=== PATIENT | male | born 1955 | race Caucasian/White ===

== ENCOUNTER 2021-03-17 19:57 | Inpatient (IN) | payer MEDICAID ==
[2021-03-17] MEDS ORDERED: Sodium Chloride 0.9% 10 ML Syringe FLUSH PRN (20:19)
[2021-03-17 21:12] LABS: ANION GAP 12.2 mmol/L (5-15); CHLORIDE,CL 103 mmol/L (98-107); SODIUM,NA 141 mmol/L (136-145)
[2021-03-17] MEDS ORDERED: Cefepime 2 GM in Sodium Chloride 0.9% 100 ML IV SCH (22:00)
[2021-03-18] MEDS ORDERED: Loratadine 10 MG Tab PO PRN (00:07)
[2021-03-18] MEDS ORDERED: Menthol/Methyl Salicylate 85 GM Tube TOP PRN (00:07)
[2021-03-18] MEDS ORDERED: Albuterol 0.083% 2.5 MG/3 ML Neb Soln INH PRN (00:07)
[2021-03-18] MEDS ORDERED: Albuterol/Ipratropium 3.0-0.5 MG/3 ML Neb Soln NEB PRN (00:07)
[2021-03-18] MEDS: Lactated Ringers 1,000 ML IV SCH ×2 (01:59→18:45)
[2021-03-18] MEDS: Acetaminophen 325 MG Tab PO PRN (03:14)
[2021-03-18] MEDS: Omeprazole 20 MG Cap.CR PO SCH (06:29)
[2021-03-18] MEDS: Formoterol/Mometasone 200-5 MCG 8.8 GM Inhaler IH SCH ×2 (06:29→20:53)
[2021-03-18] MEDS ORDERED: QUETIAPINE FUMARATE 150 MG PO SCH (08:00)
[2021-03-18] MEDS: Cefepime 2 GM in Sodium Chloride 0.9% 100 ML IV SCH ×2 (08:53→19:42)
[2021-03-18] MEDS: Carvedilol 6.25 MG Tab PO SCH ×2 (08:59→20:45)
[2021-03-18] MEDS: Venlafaxine 75 MG Cap.ER PO SCH (08:59)
[2021-03-18] MEDS: Tamsulosin 0.4 MG Cap.ER PO SCH (09:00)
[2021-03-18] MEDS: Citalopram 20 MG Tab PO SCH (09:00)
[2021-03-18] MEDS: QUEtiapine 25 MG Tab PO SCH ×2 (09:00→19:43)
[2021-03-18] MEDS: Gabapentin 300 MG Cap PO SCH ×3 (09:00→19:42)
[2021-03-18] MEDS: Lactobacillus Rhamnosus GG (Probiotic) Cap PO SCH (09:01)
[2021-03-18] MEDS: Zinc Sulfate 220 MG Cap PO SCH (09:01)
[2021-03-18] MEDS: Apixaban 2.5 MG Tab PO SCH ×2 (09:01→19:42)
[2021-03-18 09:32] LABS: CHLORIDE,CL 106 mmol/L (98-107); SODIUM,NA 141 mmol/L (136-145)
[2021-03-18 09:33] LABS: ANION GAP 14.1 mmol/L (5-15)
[2021-03-18] MEDS: traZODone 50 MG Tab PO SCH (19:43)
[2021-03-19] MEDS: Omeprazole 20 MG Cap.CR PO SCH (06:20)
[2021-03-19] MEDS: Formoterol/Mometasone 200-5 MCG 8.8 GM Inhaler IH SCH ×2 (06:24→20:05)
[2021-03-19 07:24] LABS: CHLORIDE,CL 110 mmol/L (98-107); SODIUM,NA 143 mmol/L (136-145)
[2021-03-19 07:46] LABS: ANION GAP 11.8 mmol/L (5-15)
[2021-03-19] MEDS: Cefepime 2 GM in Sodium Chloride 0.9% 100 ML IV SCH ×2 (09:12→19:32)
[2021-03-19] MEDS: Zinc Sulfate 220 MG Cap PO SCH (09:13)
[2021-03-19] MEDS: Lactobacillus Rhamnosus GG (Probiotic) Cap PO SCH (09:13)
[2021-03-19] MEDS: Venlafaxine 75 MG Cap.ER PO SCH (09:13)
[2021-03-19] MEDS: Tamsulosin 0.4 MG Cap.ER PO SCH (09:14)
[2021-03-19] MEDS: Citalopram 20 MG Tab PO SCH (09:16)
[2021-03-19] MEDS: QUEtiapine 25 MG Tab PO SCH ×2 (09:16→19:40)
[2021-03-19] MEDS: Carvedilol 6.25 MG Tab PO SCH ×2 (09:17→19:40)
[2021-03-19] MEDS: Apixaban 2.5 MG Tab PO SCH ×2 (09:17→19:40)
[2021-03-19] MEDS: Gabapentin 300 MG Cap PO SCH ×3 (09:17→19:39)
[2021-03-19] MEDS ORDERED: Vancomycin 750 MG SDV ONE (13:25)
[2021-03-19] MEDS: Lactated Ringers 1,000 ML IV SCH (19:28)
[2021-03-19] MEDS: traZODone 50 MG Tab PO SCH (19:40)
[2021-03-19] MEDS: Acetaminophen 325 MG Tab PO PRN (19:41)
[2021-03-20] MEDS: Omeprazole 20 MG Cap.CR PO SCH (06:22)
[2021-03-20 07:11] LABS: CHLORIDE,CL 110 mmol/L (98-107); SODIUM,NA 145 mmol/L (136-145)
[2021-03-20 07:12] LABS: ANION GAP 12.6 mmol/L (5-15)
[2021-03-20] MEDS: Cefepime 2 GM in Sodium Chloride 0.9% 100 ML IV SCH (07:45)
[2021-03-20] MEDS: Venlafaxine 75 MG Cap.ER PO SCH (07:49)
[2021-03-20] MEDS: Lactobacillus Rhamnosus GG (Probiotic) Cap PO SCH (07:50)
[2021-03-20] MEDS: Zinc Sulfate 220 MG Cap PO SCH (07:50)
[2021-03-20] MEDS: Gabapentin 300 MG Cap PO SCH ×2 (07:50→11:35)
[2021-03-20] MEDS: Citalopram 20 MG Tab PO SCH (07:50)
[2021-03-20] MEDS: Apixaban 2.5 MG Tab PO SCH (07:51)
[2021-03-20] MEDS: QUEtiapine 25 MG Tab PO SCH (07:51)
[2021-03-20] MEDS: Carvedilol 6.25 MG Tab PO SCH (07:51)
[2021-03-20] MEDS: Tamsulosin 0.4 MG Cap.ER PO SCH (07:51)
[2021-03-20] MEDS: Formoterol/Mometasone 200-5 MCG 8.8 GM Inhaler IH SCH (07:52)
== END 2021-03-20 13:20 | DRG 863 ==
LOC: VM.ED 19:57 → VM.MS 21:16
PROVIDERS: ADMIT Nurse Practitioner Family; ATTEND Nurse Practitioner Family
DX: T81.41XA Infection following a procedure, superficial incisional surgical site, initial encounter (principal); L03.313 Cellulitis of chest wall; E44.0 Moderate protein-calorie malnutrition; Z88.8 Allergy status to other drugs, medicaments and biological substances; Z79.01 Long term (current) use of anticoagulants; G62.1 Alcoholic polyneuropathy; L89.90 Pressure ulcer of unspecified site, unspecified stage; Z20.822 Contact with and (suspected) exposure to COVID-19; F41.1 Generalized anxiety disorder; N40.1 Benign prostatic hyperplasia with lower urinary tract symptoms; J44.9 Chronic obstructive pulmonary disease, unspecified; M19.90 Unspecified osteoarthritis, unspecified site; I10 Essential (primary) hypertension; D50.9 Iron deficiency anemia, unspecified; N48.6 Induration penis plastica; G40.909 Epilepsy, unspecified, not intractable, without status epilepticus; Z95.810 Presence of automatic (implantable) cardiac defibrillator; Z98.1 Arthrodesis status; Z98.890 Other specified postprocedural states; Z96.643 Presence of artificial hip joint, bilateral; Z87.891 Personal history of nicotine dependence; Z79.899 Other long term (current) drug therapy; F10.20 Alcohol dependence, uncomplicated; R25.1 Tremor, unspecified
CPT/HCPCS: 36415; 71045; 80053; 80202; 81003; 82140; 83605; 83735; 84100; 84145; 85025; 85610; 86140; 87040; 99283; 99285-25; A9270-GY; J0692; J3370; J7050; J7120; U0002

== ENCOUNTER 2021-04-02 15:07 | Inpatient (IN) | payer MEDICAID ==
[2021-04-02] MEDS ORDERED: Ondansetron 4 MG/2 ML SDV IVPUSH ONE (15:26)
[2021-04-02] MEDS ORDERED: Morphine 4 MG/ML Syringe IVPUSH ONE ×2 (15:27→22:29)
--- NOTE | 2021-04-02 15:40 | EDM.PDOC ---
ED HPI GENERAL MEDICAL PROBLEM - General Chief Complaint: Abdominal Pain Time Seen by Provider: 04/02/21 15:10 Source of Information: Reports: Patient, Family, Old Records History Limitations: Reports: No Limitations - History of Present Illness INITIAL COMMENTS - FREE TEXT/NARRATIVE: Pt. presents to ER with complaints of abdominal discomfort and distention that has been present for several days. Pt. states that he has been taking "Ex Lax" because he thinks he is constipated. 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 Pt. was sent to the ER for "CT scan". He had some plain film x-rays that were interpreted as showing dilated bowel loops. Pt. is not actively vomiting. He states that he had a BM before going to clinic today and states that it was runny. He does not think he has had any fever or chills. No chest pain. He was [facility] O2 yesterday at the [facility] due to hypoxia. O2 sats were in the 80s apparently. He denies any worsening shortness of breath today. Pt. denies any melena, hematochezia, or hematemesis. Covid test today was negative. He denies any cough or chest congestion. No sore throat or rhinorrhea. Onset: Today Onset Date: 04/02/21 Location: Reports: Abdomen, Generalized - Related Data Allergies Allergy/AdvReac Type Severity Reaction Status Date / Time aripiprazole [From Abilify] Allergy Other Verified 04/02/21 15:27 Home Meds: Home Meds Acetaminophen [Tylenol] 2 tbs PO Q8HR PRN 03/17/21 [History] Albuterol [Take Home: Albuterol 18 GM, 1 INH Pack] 2 puff INH Q6HR PRN 03/17/21 [History] Albuterol/Ipratropium [DuoNeb 3.0-0.5 MG/3 ML] 3 ml NEB BID PRN 03/17/21 [History] Apixaban [Eliquis] 5 mg PO BID 03/17/21 [History] Cetirizine [ZyrTEC] 10 mg PO ONETIME PRN 03/17/21 [History] Escitalopram Oxalate [Lexapro] 10 mg PO DAILY 03/17/21 [History] Fluticasone Propion/Salmeterol [Advair 250-50 Diskus] 1 puff INH Q12HR 03/17/21 [History] Gabapentin [Neurontin] 300 mg PO TID 03/17/21 [History] Menthol [Biofreeze] 118 ml TP BEDTIME PRN 03/17/21 [History] Omeprazole 20 mg PO DAILY 03/17/21 [History] QUEtiapine Fumarate [Seroquel Xr] 150 mg PO DAILY 03/17/21 [History] Tamsulosin [Flomax] 1 cap PO DAILY 03/17/21 [History] Venlafaxine [Effexor XR] 225 mg PO DAILY 03/17/21 [History] Zinc Sulfate [Zincate] 220 mg PO DAILY 03/17/21 [History] carvediloL [Carvedilol] 6.25 mg PO BID 03/17/21 [History] traZODone HCl [Trazodone HCl] 100 mg PO BEDTIME 03/17/21 [History] Nicotine [Nicotine Patch] 21 mg TD DAILY 04/02/21 [History] bisacodyL [Bisacodyl] 5 mg PO ASDIRECTED PRN 04/02/21 [History] oxyCODONE 10 mg PO Q6H PRN 04/02/21 [History] Past Medical History Cardiovascular History: Reports: Pacemaker Dermatologic History: Reports: Decubitus Ulcer Other Dermatologic History: Wound to right gutierres and left upper flank - Past Surgical History Head Surgeries/Procedures: Reports: None HEENT Surgical History: Reports: None Cardiovascular Surgical History: Reports: Pacer Dermatological Surgical History: Reports: None Social & Family History - Tobacco Use Tobacco Use Status *Q: Unknown Ever Used Tobacco - Caffeine Use Caffeine Use: Reports: Coffee ED ROS GENERAL - Review of Systems Review Of Systems: See Below Constitutional: Denies: Fever, Chills, Malaise, Weakness, Fatigue HEENT: Reports: No Symptoms Respiratory: Reports: No Symptoms Cardiovascular: Reports: No Symptoms Endocrine: Reports: No Symptoms GI/Abdominal: Reports: Abdominal Pain, Decreased Appetite, Distension, Nausea, Vomiting. Denies: Black Stool, Hematemesis, Hematochezia, Melena : Reports: No Symptoms Musculoskeletal: Reports: No Symptoms Skin: Reports: No Symptoms Neurological: Reports: No Symptoms Psychiatric: Reports: No Symptoms Hematologic/Lymphatic: Reports: No Symptoms Immunologic: Reports: No Symptoms ED EXAM, GENERAL - Physical Exam Exam: See Below Exam Limited By: No Limitations General Appearance: Alert, WD/WN, No Apparent Distress Head: Atraumatic, Normocephalic Respiratory/Chest: No Respiratory Distress, No Accessory Muscle Use, Chest Non- Tender, Decreased Breath Sounds Cardiovascular: Normal Peripheral Pulses, Regular Rate, Rhythm, No Edema, No JVD, No Murmur Peripheral Pulses: 4+: Radial (L) GI/Abdominal: Soft, Non-Tender, No Distention, No Mass (Male) Exam: Deferred Rectal (Males) Exam: Deferred Back Exam: Normal Inspection, Full Range of Motion Extremities: Normal Inspection, Normal Range of Motion, Non-Tender, No Pedal Edema, Normal Capillary Refill Neurological: Alert, Oriented, CN II-XII Intact, Normal Cognition Psychiatric: Normal Affect, Normal Mood Skin Exam: Warm, Dry, Intact, Normal Color, No Rash Course - Vital Signs Last Recorded V/S: Last Vital Signs Temp 36.6 C 04/02/21 15:10 Pulse 99 04/02/21 16:43 Resp 16 04/02/21 15:10 BP 111/53 L 04/02/21 16:43 Pulse Ox 96 04/02/21 15:10 - Orders/Labs/Meds Orders: Active Orders 24 hr Category Date Time Status Patient Status [ADT] Routine ADT 04/03/21 00:28 Active Gastrointestinal Tube Mgmt [RC] ASDIRECTED Care 04/03/21 00:19 Active Abdomen 1V Upright [CR] Stat Exams 04/03/21 00:19 Stop Req Abdomen Pelvis w Cont [CT] Stat Exams 04/02/21 15:42 Ordered Chest 1V Frontal [CR] Stat Exams 04/03/21 00:19 Ordered Sodium Chloride 0.9% [Saline Flush] Med 04/02/21 15:23 Active 10 ml FLUSH ASDIRECTED PRN NG [Nasogastric Orogastric Tube Insertion] [OM.PC] Oth 04/03/21 00:19 Ordered Routine Peripheral IV Insertion Adult [OM.PC] Routine Oth 04/02/21 15:24 Ordered Medication Orders Sodium Chloride (Sodium Chloride 0.9% 10 Ml Syringe) 10 ml FLUSH ASDIRECTED PRN PRN Reason: Keep Vein Open Labs: Laboratory Tests 04/02/21 04/02/21 04/02/21 Range/Units 16:10 16:10 16:10 WBC 10.0 (4.0-10.0) x10^3/uL RBC 4.12 L (4.5-6.0) x10^6/uL Hgb 12.3 L (14.0-18.0) g/dL Hct 37.4 L (40.0-52.0) % MCV 90.8 (78.0-93.0) fL MCH 29.9 (26.0-32.0) pg MCHC 32.9 (32.0-36.0) g/dL RDW Coeff of Ender 14.4 (10.0-15.0) % Plt Count 329 (130-400) x10^3/uL Immature Gran % (Auto) 0.10 (0.00-0.43) % Neut % (Auto) 74.5 (50.0-80.0) % Lymph % (Auto) 12.3 L (25.0-50.0) % [place] % (Auto) 10.3 (2.0-11.0) % Eos % (Auto) 2.0 (0.0-4.0) % Baso % (Auto) 0.8 (0.2-1.2) % Neut # (Auto) 7.5 (1.8-7.7) x10^3/uL Lymph # (Auto) 1.2 (1.0-4.8) x10^3/uL [place] # (Auto) 1.0 H (0.0-0.8) x10^3/uL Eos # (Auto) 0.2 (0.0-0.5) x10^3/uL Baso # (Auto) 0.1 (0.0-0.2) x10^3/uL Immature Gran # (Auto) 0.01 (0.00-0.07) x10^3/uL PT 10.3 (9.9-12.5) SEC INR 0.9 L (2.0-3.5) APTT (25.6-32.8) SEC Sodium TNP Potassium TNP Chloride TNP Carbon Dioxide 22 (21-32) mmol/L Anion Gap TNP BUN 10 (7-18) mg/dL Creatinine 1.2 (0.70-1.30) mg/dL Est Cr Clr Drug Dosing TNP Estimated GFR (MDRD) > 60 Glucose 110 H (70-99) mg/dL Calcium 9.2 (8.5-10.1) mg/dL Corrected Calcium 10.0 (8.5-10.1) mg/dL Phosphorus 4.3 (2.6-4.7) mg/dL Magnesium 1.8 (1.8-2.4) mg/dL Total Bilirubin 0.3 (0.2-1.0) mg/dL AST 16 (15-37) U/L ALT 11 L (16-63) U/L Alkaline Phosphatase 114 (46-116) U/L C-Reactive Protein 10.6 H (<=0.9) mg/dL Total Protein 8.2 (6.4-8.2) g/dL Albumin 3.0 L (3.4-5.0) g/dL Globulin 5.2 g/dL Albumin/Globulin Ratio 0.58 Amylase 26 (25-115) U/L Lipase 43 L (73-393) U/L Urine Color (YELLOW) Urine Appearance (CLEAR) Urine pH (5.0-8.0) Ur Specific [place] Urine Protein (NEGATIVE) mg/dL Urine Glucose (UA) (NEGATIVE) mg/dL Urine Ketones (NEGATIVE) mg/dL Urine Occult Blood (NEGATIVE) Urine Nitrite (NEGATIVE) Urine Bilirubin (NEGATIVE) Urine Urobilinogen (0.2) EU/dL Ur Leukocyte Esterase (NEGATIVE) 04/02/21 04/02/21 04/02/21 Range/Units 16:10 17:34 23:35 WBC (4.0-10.0) x10^3/uL RBC (4.5-6.0) x10^6/uL Hgb (14.0-18.0) g/dL Hct (40.0-52.0) % MCV (78.0-93.0) fL MCH (26.0-32.0) pg MCHC (32.0-36.0) g/dL RDW Coeff of Ender (10.0-15.0) % Plt Count (130-400) x10^3/uL Immature Gran % (Auto) (0.00-0.43) % Neut % (Auto) (50.0-80.0) % Lymph % (Auto) (25.0-50.0) % [place] % (Auto) (2.0-11.0) % Eos % (Auto) (0.0-4.0) % Baso % (Auto) (0.2-1.2) % Neut # (Auto) (1.8-7.7) x10^3/uL Lymph # (Auto) (1.0-4.8) x10^3/uL [place] # (Auto) (0.0-0.8) x10^3/uL Eos # (Auto) (0.0-0.5) x10^3/uL Baso # (Auto) (0.0-0.2) x10^3/uL Immature Gran # (Auto) (0.00-0.07) x10^3/uL PT (9.9-12.5) SEC INR (2.0-3.5) APTT 29.1 (25.6-32.8) SEC Sodium 137 Potassium 3.4 L Chloride 102 Carbon Dioxide 26 (21-32) mmol/L Anion Gap 12.4 BUN (7-18) mg/dL Creatinine (0.70-1.30) mg/dL Est Cr Clr Drug Dosing Estimated GFR (MDRD) Glucose (70-99) mg/dL Calcium (8.5-10.1) mg/dL Corrected Calcium (8.5-10.1) mg/dL Phosphorus (2.6-4.7) mg/dL Magnesium (1.8-2.4) mg/dL Total Bilirubin (0.2-1.0) mg/dL AST (15-37) U/L ALT (16-63) U/L Alkaline Phosphatase (46-116) U/L C-Reactive Protein (<=0.9) mg/dL Total Protein (6.4-8.2) g/dL Albumin (3.4-5.0) g/dL Globulin g/dL Albumin/Globulin Ratio Amylase (25-115) U/L Lipase (73-393) U/L Urine Color Dark yellow H (YELLOW) Urine Appearance Clear (CLEAR) Urine pH 6.0 (5.0-8.0) Ur Specific [place] 1.010 Urine Protein Negative (NEGATIVE) mg/dL Urine Glucose (UA) Negative (NEGATIVE) mg/dL Urine Ketones Negative (NEGATIVE) mg/dL Urine Occult Blood Negative (NEGATIVE) Urine Nitrite Negative (NEGATIVE) Urine Bilirubin Negative (NEGATIVE) Urine Urobilinogen 0.2 (0.2) EU/dL Ur Leukocyte Esterase Negative (NEGATIVE) Meds: Medications Generic Name Dose Route Start Last Admin Trade Name Qasimq PRN Reason Stop Dose Admin Sodium Chloride 10 ml 04/02/21 15:23 Sodium Chloride 0.9% 10 Ml Syringe FLUSH ASDIRECTED PRN Keep Vein Open Discontinued Medications Generic Name Dose Route Start Last Admin Trade Name Simeon PRN Reason Stop Dose Admin Morphine Sulfate 4 mg 04/02/21 15:27 04/02/21 16:18 Morphine 4 Mg/Ml Syringe IVPUSH 04/02/21 15:28 4 mg ONETIME ONE Administration Morphine Sulfate 4 mg 04/02/21 22:29 04/02/21 22:40 Morphine 4 Mg/Ml Syringe IVPUSH 04/02/21 22:30 4 mg ONETIME ONE Administration Ondansetron HCl 4 mg 04/02/21 15:26 04/02/21 16:16 Ondansetron 4 Mg/2 Ml Sdv IVPUSH 04/02/21 15:27 4 mg ONETIME ONE Administration Departure - Departure Time of Disposition: 12:53 Disposition: Admitted As Inpatient 67 Clinical Impression: Bowel obstruction - Discharge Information Referrals: Sherrell Florez DO [Primary Care Provider] - Forms: ED Department Discharge Sepsis Event Note (ED) - Focused Exam Vital Signs: Vital Signs Temp Pulse Resp BP Pulse Ox 04/02/21 16:43 99 111/53 L 04/02/21 15:10 36.6 C 121 H 16 100/55 L 96 - Problem List Review Problem List Initiated/Reviewed/Updated: Yes - My Orders Last 24 Hours: My Active Orders 04/02/21 15:23 Sodium Chloride 0.9% [Saline Flush] 10 ml FLUSH ASDIRECTED PRN 04/02/21 15:24 Peripheral IV Insertion Adult [OM.PC] Routine 04/02/21 15:42 Abdomen Pelvis w Cont [CT] Stat 04/03/21 00:19 Gastrointestinal Tube Mgmt [RC] ASDIRECTED Abdomen 1V Upright [CR] Stat Chest 1V Frontal [CR] Stat NG [Nasogastric Orogastric Tube Insertion] [OM.PC] Routine 04/03/21 00:28 Patient Status [ADT] Routine - Assessment/Plan Last 24 Hours: My Active Orders 04/02/21 15:23 Sodium Chloride 0.9% [Saline Flush] 10 ml FLUSH ASDIRECTED PRN 04/02/21 15:24 Peripheral IV Insertion Adult [OM.PC] Routine 04/02/21 15:42 Abdomen Pelvis w Cont [CT] Stat 04/03/21 00:19 Gastrointestinal Tube Mgmt [RC] ASDIRECTED Abdomen 1V Upright [CR] Stat Chest 1V Frontal [CR] Stat NG [Nasogastric Orogastric Tube Insertion] [OM.PC] Routine 04/03/21 00:28 Patient Status [ADT] Routine Plan: Pt. will be admitted acutely for bowel obstruction. CT was performed. There was a major delay as a hardware upgrade was being performed on the CT equipment, and due to the fact that the patient was a difficult IV start, which delayed his contrast CT. Anesthesia was contacted and was able to start the IV after numerous attempts. There was also difficulty sending the CT to be read by radiology. They are working on rectifying this. [facility] is currently not accepting patients, so he will be admitted here acutely. Julio C Hand will picker box operator the patient in the AM. NG will be placed to low intermittent suction. He will be started on maintenance fluids and will be given IV morphine for pain control. He is a code 1.
--- NOTE | 2021-04-02 17:12 | CR ---
[id number] RAD/RAD Chest PA or AP 1V EXAM: FRONTAL CHEST INDICATION: SHORT OF BREATH, HYPOXIA. COMPARISON: March 17, 2021. DISCUSSION: There is significant distention of bowel loops in the upper abdomen which was present previously. This could obscure pneumoperitoneum. Right humerus fixation hardware is partially imaged. Left-sided electrode tip overlying the aortic arch. The heart is normal in size. Chronic scarring in the left lung base. No acute infiltrates or effusions. IMPRESSION: 1. Gas-filled distended bowel loops in the upper abdomen. Kamlesh Barrera MD 04/02/21 [id number] Thank you for allowing us to participate in the care of your patient.
[2021-04-02 17:52] LABS: ANION GAP 12.4 mmol/L (5-15)
[2021-04-03] MEDS ORDERED: Albuterol/Ipratropium 3.0-0.5 MG/3 ML Neb Soln NEB PRN (01:26)
[2021-04-03] MEDS ORDERED: Pantoprazole 40 MG Vial IVPUSH SCH (01:45)
[2021-04-03] MEDS: Sodium Chloride 0.9% 10 ML Syringe FLUSH PRN ×7 (05:36→22:43)
[2021-04-03] MEDS: Metoclopramide 10 MG/2 ML SDV IVPUSH SCH ×5 (05:41→19:59)
[2021-04-03 07:16] LABS: CHLORIDE,CL 102 mmol/L (98-107); SODIUM,NA 138 mmol/L (136-145)
[2021-04-03 07:17] LABS: ANION GAP 15.3 mmol/L (5-15)
[2021-04-03] MEDS ORDERED: Potassium Chloride 20 MEQ Tab.ER PO ONE (07:19)
[2021-04-03] MEDS: Pantoprazole 40 MG Vial IVPUSH SCH (08:17)
[2021-04-03] MEDS: Formoterol/Mometasone 200-5 MCG 8.8 GM Inhaler IH SCH ×2 (08:18→19:57)
[2021-04-03] MEDS: Nicotine 21 MG/24 Hr Patch TRDERM SCH (08:19)
[2021-04-03] MEDS: Morphine 4 MG/ML Syringe IVPUSH PRN ×4 (08:22→22:39)
[2021-04-03] MEDS: Sodium Chloride 0.9% 1,000 ML IV SCH ×2 (08:26→14:02)
[2021-04-03] MEDS ORDERED: Menthol/Methyl Salicylate 85 GM Tube PRN (08:33)
--- NOTE | 2021-04-03 08:43 | HP ---
CHIEF COMPLAINT: Abdominal pain. HISTORY OF PRESENT ILLNESS: A 65-year-old male patient who was seen in the clinic at [facility] yesterday for abdominal complaints. The patient did have an x-ray which has showed dilated loops of bowel. The patient was sent over to the emergency room at [facility] for a CT scan and further workup. CT scan was completed, but the results are pending, however, the ER provider felt the patient had a small bowel obstruction. Therefore, the patient was admitted to the acute care floor. The patient denies any headaches, dizziness, or lightheadedness. No shortness of breath or cough. No chest pain or palpitations. The patient complains of generalized abdominal pain. He states his abdomen is very bloated. The patient did have a very large bowel movement overnight. The patient feels somewhat nauseated, but no vomiting. NG is in place. No skin concerns. No recent infections. No fevers or chills. Overall, the patient states he does not feel very well. PAST MEDICAL HISTORY: 1. Pacemaker. 2. History of decubitus ulcer. 3. Wound to the right chin and upper flank. PAST SURGICAL HISTORY: Pacemaker insertion. FAMILY HISTORY: Noncontributory. SOCIAL HISTORY: The patient has a history of alcohol abuse. Tobacco use disorder. The patient is not . The patient currently resides at the [facility] in [place], [place]. CODE STATUS: Full code. LABORATORY STUDIES: CBC: White blood cell count 9.8, hemoglobin 11.1, hematocrit 33.6, platelet count 334,000. BMP: Sodium 138, potassium 3.3, chloride 102, CO2 of 24, anion gap 15.3, BUN 10, creatinine 1.2, GFR greater than 60, glucose 91, calcium 9.1. IMAGING STUDIES: 1. CT of the abdomen and pelvis, results are pending. 2. Chest x-ray shows gas-filled distended bowel loops in the upper abdomen. MEDICATIONS: 1. DuoNebs twice daily as needed. 2. Eliquis 5 mg 1 tablet p.o. twice daily. 3. Coreg 6.25 mg 1 tablet p.o. twice daily. 4. Celexa 20 mg 1 tablet p.o. daily. 5. Gabapentin 300 mg 1 tablet p.o. 3 times daily. 6. Biofreeze topical at bedtime as needed. 7. Symbicort 2 puffs twice daily. 8. Seroquel 150 mg 1 tablet p.o. daily. 9. Flomax 0.4 mg 1 tablet p.o. daily. 10.Venlafaxine 150 mg 1 tablet p.o. daily. 11.Venlafaxine 75 mg 1 tablet p.o. daily. ASSESSMENT: 1. Small bowel obstruction versus pseudo-obstruction. 2. Abdominal distention. 3. Nausea and vomiting. 4. Abdominal pain. 5. History of tobacco use disorder. 6. History of alcohol abuse. PLAN: A 65-year-old male patient from the local senior care, who was admitted to the acute care floor at [facility] for possible small-bowel obstruction versus pseudo-obstruction. The patient has NG in place. We will repeat abdominal x-ray for placement of the NG. The patient will be on scheduled Reglan. N.p.o. Activity as tolerated. The patient is a full code. The patient does wish to transfer to a higher level of care should the need arise. Start the patient on IV fluids. Ondansetron for nausea. Recheck laboratory work tomorrow. We will await the CT scan results. This patient was seen and examined by me as an [facility] provider. Greater than 30 minutes for care and coordination for this patient. TB: 04/03/2021 07:56:30 MODL: 04/03/2021 08:36:00 /[id number]
[2021-04-03] MEDS: Venlafaxine 75 MG Cap.ER PO SCH (08:49)
[2021-04-03] MEDS: Carvedilol 6.25 MG Tab PO SCH ×2 (08:49→19:59)
[2021-04-03] MEDS: Tamsulosin 0.4 MG Cap.ER PO SCH (08:49)
[2021-04-03] MEDS: Apixaban 2.5 MG Tab PO SCH ×2 (08:49→19:56)
[2021-04-03] MEDS: Citalopram 20 MG Tab PO SCH (08:49)
[2021-04-03] MEDS: Venlafaxine 150 MG Cap.ER PO SCH (08:49)
[2021-04-03] MEDS: Gabapentin 300 MG Cap PO SCH ×3 (08:50→19:57)
--- NOTE | 2021-04-03 10:13 | CT ---
[id number] CT/CT Abdomen Pelvis W IV EXAM: CT Abdomen Pelvis W IV CLINICAL DATA: ABDOMINAL PAIN, DISTENTION, ? OBSTRUCTION. COMPARISON STUDY: Chest radiograph from same date. FINDINGS: Subsegmental atelectasis and/or scarring in both lung bases left greater than right. Liver, spleen, gallbladder, pancreas, adrenal glands, and kidneys are unremarkable. Small sliding-type hiatus hernia. Marked gaseous distention throughout the colon extending to the rectosigmoid junction where there is transition to nondilated bowel. No obstructing mass or other abnormality is radiographically evident. Colon measures up to 10 cm in diameter. No pneumoperitoneum or pneumatosis. No portal venous gas. No mesenteric edema. Small amount of free fluid in the pelvis. No drainable fluid collection. No small bowel obstruction or inflammation. Appendix is normal. Generator device projects over the left flank. Hardware at the L5-S1 disc space. Bilateral L5 pars defects. Grade 1 L5-S1 anterolisthesis.. IMPRESSION: Marked gaseous distention and dilation throughout the colon. Colon is dilated up to 10 cm. Transition to normal caliber bowel at the rectosigmoid junction. No radiographically evident obstructing mass. Consider surgical consultation for further evaluation. No pneumoperitoneum or other acute findings in the abdomen/pelvis. Rodriguez Huerta MD 04/03/21 1012 Thank you for allowing us to participate in the care of your patient.
--- NOTE | 2021-04-03 11:21 | CR ---
[id number] RAD/RAD Abdomen Flat Plate 1V EXAM: RAD Abdomen Flat Plate 1V INDICATION: ABDOMEN PAIN, NG TUBE PLACEMENT. COMPARISON: CT from yesterday. DISCUSSION: There is persistent significant gaseous distention of the colon which measures up to about 13 cm in diameter. Interval nasogastric tube placement tip positioned at the level of the gastroesophageal junction, consider advancement 12 cm. Stimulator lead overlying the lower chest. Bibasilar atelectasis. IMPRESSION: 1. Interval nasogastric tube placement tip at the gastroesophageal junction. Consider tube advancement 12 cm. 2. Persistent gaseous distention of the colon. Kamlesh Barrera MD 04/03/21 [id number] Thank you for allowing us to participate in the care of your patient.
[2021-04-03] MEDS: QUEtiapine 25 MG Tab PO SCH ×2 (13:58→19:55)
[2021-04-03] MEDS ORDERED: Bisacodyl 5 MG Tab PO ONE (18:00)
[2021-04-04] MEDS: Sodium Chloride 0.9% 1,000 ML IV SCH (00:40)
[2021-04-04] MEDS: Metoclopramide 10 MG/2 ML SDV IVPUSH SCH ×2 (01:57→08:39)
[2021-04-04] MEDS: Sodium Chloride 0.9% 10 ML Syringe FLUSH PRN ×2 (02:00→04:56)
[2021-04-04] MEDS: Morphine 4 MG/ML Syringe IVPUSH PRN (04:49)
[2021-04-04 06:48] LABS: ANION GAP 18.1 mmol/L (5-15); CHLORIDE,CL 107 mmol/L (98-107); SODIUM,NA 144 mmol/L (136-145)
[2021-04-04] MEDS ORDERED: Potassium Chloride 20 MEQ Tab.ER PO ONE (06:55)
[2021-04-04] MEDS: Formoterol/Mometasone 200-5 MCG 8.8 GM Inhaler IH SCH (08:37)
[2021-04-04] MEDS: Carvedilol 6.25 MG Tab PO SCH (08:37)
[2021-04-04] MEDS: Citalopram 20 MG Tab PO SCH (08:37)
[2021-04-04] MEDS: Venlafaxine 75 MG Cap.ER PO SCH (08:38)
[2021-04-04] MEDS: Apixaban 2.5 MG Tab PO SCH (08:38)
[2021-04-04] MEDS: Nicotine 21 MG/24 Hr Patch TRDERM SCH (08:38)
[2021-04-04] MEDS: Venlafaxine 150 MG Cap.ER PO SCH (08:38)
[2021-04-04] MEDS: Pantoprazole 40 MG Vial IVPUSH SCH (08:38)
[2021-04-04] MEDS: Gabapentin 300 MG Cap PO SCH (08:38)
[2021-04-04] MEDS: Tamsulosin 0.4 MG Cap.ER PO SCH (08:38)
[2021-04-04] MEDS: QUEtiapine 25 MG Tab PO SCH (08:39)
--- NOTE | 2021-04-04 11:56 | DISCH ---
Discharge summary from the acute care floor at [facility], discharged to [facility]. ADMITTING DIAGNOSES: 1. Small bowel obstruction versus pseudo-obstruction. 2. Abdominal distention. 3. Nausea and vomiting. 4. Abdominal pain. 5. History of tobacco use disorder. 6. History of alcohol abuse. DISCHARGE DIAGNOSES: 1. Abdominal pain secondary to gas distention. 2. Nausea and vomiting. 3. Weakness and deconditioning. 4. Pacemaker. 5. History of decubitus ulcer. HISTORY OF PRESENT ILLNESS: A 65-year-old male patient was seen in the [facility] 2 days ago for abdominal complaints. The patient did have an x- ray, which showed dilated loops of bowel. The patient was sent over to the emergency room for CT scan and further workup. CT scan was completed, which showed gaseous distention, which the patient has had history of. The ER provider felt that the patient had a small bowel obstruction, but CT scan did not show it. The patient was then admitted to the acute care floor. BRIEF HOSPITAL COURSE: The patient remained hemodynamically stable and afebrile. The patient did require IV pain medication for his abdominal distention. The patient has remained n.p.o. The NG tube was removed as there was no small bowel obstruction seen on the CT scan. No issues with urination or bowel movements. CONSULTATIONS: Case Management. ACTIVITY: As tolerated. DIET: Clear liquids with no red dye. CODE STATUS: Code 2. LABORATORY STUDIES: 1. CBC: White blood cell count 8.6, hemoglobin 10.8, hematocrit 34.2, and platelets 262,000. 2. Sodium 144, potassium 3.1, chloride 107, CO2 of 22, anion gap 18.2, BUN 12, creatinine 1.1, GFR greater than 60, glucose 61, calcium 8.6, bilirubin 0.3, AST 13, ALT 14, alkaline phosphatase 95, and total protein 7.0. DISCHARGE MEDICATIONS: 1. DuoNebs twice daily as needed. 2. Eliquis 5 mg 1 tablet p.o. twice daily. 3. Carvedilol 6.25 mg 1 tablet p.o. twice daily. 4. Celexa 20 mg 1 tablet p.o. daily. 5. Gabapentin 300 mg 1 tablet p.o. 3 times daily. 6. Biofreeze daily as needed. 7. Symbicort 1 puff every 12 hours. 8. Seroquel 75 mg 1 tablet p.o. twice daily. 9. Flomax 0.4 mg 1 tablet p.o. daily. 10.Effexor 225 mg 1 tablet p.o. daily. REVIEW OF SYSTEMS: Constitutional: Negative. Respiratory: Negative. Cardiovascular: Negative. Abdomen: Generalized abdominal discomfort with abdominal distention. Neurological: Negative. Skin: Negative. DISCHARGE PHYSICAL EXAMINATION: Vital Signs: Weight 160.1 pounds, temperature 98.7, pulse 70, blood pressure 121/71, respiratory rate 18, and oxygen saturation 99. Skin: Intact, warm, and dry. Respiratory: Lungs are decreased but clear throughout. Cardiovascular: Regular rate and rhythm, no murmur. Abdomen: Generalized tenderness throughout. Bowel sounds are hypoactive. Abdomen is distended. Extremities: No edema. Neurological: The patient is alert. Patient is oriented to person, place, and time. ASSESSMENT: 1. Abdominal pain secondary to gaseous distention. 2. [place] syndrome. 3. Pacemaker. 4. History of decubitus ulcer. PLAN: A 65-year-old male patient will be discharged to [facility] from the acute care floor at [facility]. The patient will be transferred via ALS ground to [facility]. No changes with any medications. The patient will receive 40 mEq of p.o. potassium prior to discharge. The patient was discharged in hemodynamically stable condition. Dr. Phan is the accepting provider. Patient will also be seen by GI for decompression of colonic distention. All appropriate paperwork was completed and signed by the patient. This patient was seen and examined by me as an [facility] provider. TB: 04/04/2021 07:05:16 MODL: 04/04/2021 11:48:09 /[id number]
== END 2021-04-04 07:20 | disposition short-term general hospital (02) | DRG 392 ==
LOC: VM.ED 15:07 → VM.MS 04-03 00:55
PROVIDERS: ADMIT Nurse Practitioner Family; ATTEND Nurse Practitioner Family
DX: K56.609 Unspecified intestinal obstruction, unspecified as to partial versus complete obstruction (principal); R14.0 Abdominal distension (gaseous); Z87.19 Personal history of other diseases of the digestive system; Z88.8 Allergy status to other drugs, medicaments and biological substances; Z79.01 Long term (current) use of anticoagulants; R11.2 Nausea with vomiting, unspecified; R53.81 Other malaise; K59.81 Ogilvie syndrome; Z20.822 Contact with and (suspected) exposure to COVID-19; Z95.0 Presence of cardiac pacemaker; Z79.899 Other long term (current) drug therapy
CPT/HCPCS: 36000; 36415; 71045; 74018; 74177; 80048; 80051; 80053; 81003; 82150; 83690; 83735; 84100; 85025; 85610; 85730; 86140; 96374; 96375; 96376; 99283; 99285-25; A9270-GY; C9113; J2270; J2405; J2765; J7030; U0002

== ENCOUNTER 2021-10-10 10:28 | Emergency (ER) | payer MEDICARE, OTHER, MEDICAID ==
[2021-10-10 11:19] LABS: CHLORIDE,CL 103 mmol/L (98-107); SODIUM,NA 142 mmol/L (136-145)
[2021-10-10 11:23] LABS: ANION GAP 12.5 mmol/L (5-15); ESTIMATED GFR 61 mL/min (>=60)
[2021-10-10] MEDS: Ketorolac 30 MG/ML SDV IVPUSH ONE (12:17)
[2021-10-10] MEDS: Sodium Chloride 0.9% 1,000 ML IV SCH (12:17)
[2021-10-10] MEDS: Ondansetron 8 MG in Sodium Chloride 0.9% 100 ML IV ONE (12:20)
[2021-10-10] MEDS: Morphine 2 MG/ML SYRINGE IVPUSH ONE (14:19)
[2021-10-10] MEDS: Promethazine 6.25 MG in Sodium Chloride 0.9% 100 ML IV ONE (14:24)
[2021-10-10] MEDS: LORazepam 2 MG/ML SDV IVPUSH ONE (16:56)
== END 2021-10-10 17:33 | disposition short-term general hospital (02) ==
LOC: VM.ED 10:28
DX: K56.609 Unspecified intestinal obstruction, unspecified as to partial versus complete obstruction (principal); Z88.8 Allergy status to other drugs, medicaments and biological substances
CPT/HCPCS: 36415; 43752; 74018; 80053; 85025; 96361; 96374; 96375; 99285; 99285-25; J1885; J2060; J2270; J2405; J2550; J7030

== ENCOUNTER 2022-04-25 13:53 | Emergency (ER) | payer MEDICARE, OTHER, MEDICAID ==
[2022-04-25] MEDS ORDERED: Sodium Chloride 0.9% 10 ML Syringe FLUSH PRN (14:18)
[2022-04-25] MEDS ORDERED: Ondansetron 4 MG/2 ML SDV IVPUSH ONE (14:20)
[2022-04-25] MEDS ORDERED: Morphine 4 MG/ML Syringe IVPUSH ONE (14:20)
[2022-04-25] MEDS ORDERED: Iopamidol 612 MG/ML 100 ML Bottle IVPUSH ONE (14:32)
[2022-04-25 14:59] LABS: CHLORIDE,CL 104 mmol/L (98-107); SODIUM,NA 142 mmol/L (136-145)
[2022-04-25 15:00] LABS: ANION GAP 15.4 mmol/L (5-15); ESTIMATED GFR 75 mL/min (>=60)
[2022-04-25 15:09] LABS: PTT,PARTIAL THROMBOPLSTIN TIME 29.1 SEC (20.5-30.9)
[2022-04-25] MEDS ORDERED: Lactated Ringers 1,000 ML IV ONE (15:14)
[2022-04-25 17:43] LABS: CORONAVIRUS COVID-19 NAA NEGATIVE (NEGATIVE)
[2022-04-25 17:44] LABS: RESPIRATORY SYNCYTIAL VIR NAA NEGATIVE (NEGATIVE)
== END 2022-04-25 18:48 | disposition short-term general hospital (02) ==
LOC: VM.ED 13:53
DX: K56.609 Unspecified intestinal obstruction, unspecified as to partial versus complete obstruction (principal); K59.81 Ogilvie syndrome; I48.91 Unspecified atrial fibrillation; I10 Essential (primary) hypertension; J44.9 Chronic obstructive pulmonary disease, unspecified; K21.9 Gastro-esophageal reflux disease without esophagitis; M19.90 Unspecified osteoarthritis, unspecified site; D64.9 Anemia, unspecified; Z88.8 Allergy status to other drugs, medicaments and biological substances; Z79.899 Other long term (current) drug therapy; Z20.822 Contact with and (suspected) exposure to COVID-19
CPT/HCPCS: 0241U; 36415; 74177; 80053; 82150; 83605; 83690; 83735; 84100; 85025; 85610; 85730; 86140; 96361; 96374; 96375; 99284; J2270; J2405; J7120; Q9967

== ENCOUNTER 2022-08-12 15:55 | Emergency (ER) | payer MEDICARE, OTHER, MEDICAID ==
[2022-08-12] MEDS ORDERED: Sodium Chloride 0.9% 10 ML Syringe FLUSH PRN (16:17)
[2022-08-12 17:05] LABS: CHLORIDE,CL 105 mmol/L (98-107); SODIUM,NA 144 mmol/L (136-145)
[2022-08-12] MEDS ORDERED: HYDROmorphone 0.5 MG/0.5 ML Syringe IVPUSH ONE ×2 (17:08→20:09)
[2022-08-12 17:09] LABS: ANION GAP 12.9 mmol/L (5-15); ESTIMATED GFR 55 mL/min (>=60)
[2022-08-12 17:16] LABS: PTT,PARTIAL THROMBOPLSTIN TIME 31.8 SEC (23.6-33.6)
[2022-08-12] MEDS ORDERED: Iopamidol 612 MG/ML 100 ML Bottle IVPUSH ONE (18:23)
== END 2022-08-12 21:15 | disposition short-term general hospital (02) ==
LOC: VM.ED 15:55
DX: K56.609 Unspecified intestinal obstruction, unspecified as to partial versus complete obstruction (principal); I48.91 Unspecified atrial fibrillation; I10 Essential (primary) hypertension; J44.9 Chronic obstructive pulmonary disease, unspecified; K21.9 Gastro-esophageal reflux disease without esophagitis; M19.90 Unspecified osteoarthritis, unspecified site; Z88.8 Allergy status to other drugs, medicaments and biological substances; Z79.899 Other long term (current) drug therapy
CPT/HCPCS: 36415; 74177; 80053; 82150; 83605; 83690; 83735; 84100; 85025; 85610; 85730; 86140; 96374; 96376; 99284; 99285-25; J1170; Q9967

== ENCOUNTER 2022-09-25 17:10 | Inpatient (IN) | payer MEDICARE, OTHER, MEDICAID ==
[2022-09-25 17:42] LABS: BASOPHILS PERCENT AUTO 0.3 % (0.2-1.2); EOSINOPHILS ABSOLUTE AUTO 0.1 x10^3/uL (0.0-0.5); EOSINOPHILS PERCENT AUTO 1.3 % (0.0-4.0); HEMATOCRIT 35.1 % (40.0-52.0); HEMOGLOBIN 11.7 g/dL (14.0-18.0); IMMATURE GRAN ABSOLUTE AUTO 0.02 x10^3/uL (0.00-0.07); LYMPHOCYTES ABSOLUTE AUTO 1.5 x10^3/uL (1.0-4.8); LYMPHOCYTES PERCENT AUTO 15.7 % (25.0-50.0); MEAN CORPUSCULAR HEMOGLOBIN 29.7 pg (26.0-32.0); MEAN CORPUSCULAR HGB CONC 33.3 g/dL (32.0-36.0); MEAN CORPUSCULAR VOLUME 89.1 fL (78.0-93.0); MONOCYTES ABSOLUTE AUTO 0.9 x10^3/uL (0.0-0.8); MONOCYTES PERCENT AUTO 9.6 % (2.0-11.0); NEUTROPHILS PERCENT AUTO 72.9 % (50.0-80.0); PLATELET COUNT,PLT 285 x10^3/uL (130-400); RED BLOOD CELL COUNT 3.94 x10^6/uL (4.5-6.0); WHITE BLOOD CELL COUNT,WBC 9.5 x10^3/uL (4.0-10.0)
[2022-09-25] MEDS ORDERED: Sodium Chloride 0.9% 1,000 ML IV ONE ×2 (17:45→18:55)
[2022-09-25 18:02] LABS: A/G RATIO 0.44; ALANINE AMINOTRANSFERASE,ALT 11 U/L (16-63); ALBUMIN 2.7 g/dL (3.4-5.0); ALKALINE PHOSPHATASE 130 U/L (46-116); ASPARTATE AMNIOTRANSFERASE,AST 30 U/L (15-37); BILIRUBIN TOTAL 0.3 mg/dL (0.2-1.0); CALCIUM 8.6 mg/dL (8.5-10.1); CARBON DIOXIDE,CO2 20 mmol/L (21-32); GLUCOSE RANDOM 102 mg/dL (70-99); MAGNESIUM 3.5 mg/dL (1.8-2.4); PROTEIN TOTAL,TP 8.8 g/dL (6.4-8.2)
[2022-09-25 18:09] LABS: CHLORIDE,CL 94 mmol/L (98-107); POTASSIUM,K 3.4 mmol/L (3.5-5.1); SODIUM,NA 131 mmol/L (136-145)
[2022-09-25 18:11] LABS: ANION GAP 20.4 mmol/L (5-15); BLOOD UREA NITROGEN,BUN 75 mg/dL (7-18); CREATININE 6.4 mg/dL (0.70-1.30); ESTIMATED GFR 9 mL/min (>=60)
[2022-09-25] MEDS ORDERED: Sodium Chloride 0.9% 1,000 ML IV SCH (20:45)
[2022-09-26 06:44] LABS: BASOPHILS PERCENT AUTO 0.2 % (0.2-1.2); EOSINOPHILS ABSOLUTE AUTO 0.3 x10^3/uL (0.0-0.5); EOSINOPHILS PERCENT AUTO 3.3 % (0.0-4.0); HEMATOCRIT 28.5 % (40.0-52.0); HEMOGLOBIN 9.2 g/dL (14.0-18.0); IMMATURE GRAN ABSOLUTE AUTO 0.03 x10^3/uL (0.00-0.07); LYMPHOCYTES ABSOLUTE AUTO 1.3 x10^3/uL (1.0-4.8); LYMPHOCYTES PERCENT AUTO 14.7 % (25.0-50.0); MEAN CORPUSCULAR HEMOGLOBIN 29.5 pg (26.0-32.0); MEAN CORPUSCULAR HGB CONC 32.3 g/dL (32.0-36.0); MEAN CORPUSCULAR VOLUME 91.3 fL (78.0-93.0); MONOCYTES ABSOLUTE AUTO 0.9 x10^3/uL (0.0-0.8); MONOCYTES PERCENT AUTO 10.5 % (2.0-11.0); NEUTROPHILS ABSOLUTE AUTO 6.3 x10^3/uL (1.8-7.7); PLATELET COUNT,PLT 318 x10^3/uL (130-400); RED BLOOD CELL COUNT 3.12 x10^6/uL (4.5-6.0); WHITE BLOOD CELL COUNT,WBC 8.9 x10^3/uL (4.0-10.0)
[2022-09-26 07:09] LABS: CALCIUM 7.8 mg/dL (8.5-10.1); EST CRCL DRUG DOSING (CG) 15.76 mL/min; POTASSIUM,K 3.4 mmol/L (3.5-5.1)
[2022-09-26 07:10] LABS: ANION GAP 17.4 mmol/L (5-15)
[2022-09-26 07:11] LABS: CREATININE 4.5 mg/dL (0.70-1.30)
[2022-09-26 07:22] LABS: C-REACTIVE PROTEIN 11.7 mg/dL (<=0.9)
[2022-09-26] MEDS ORDERED: Potassium Chloride 10 MEQ Tab.ER PO ONE (08:18)
[2022-09-26] MEDS ORDERED: Simethicone 80 MG Tab.Chew PO PRN (08:31)
[2022-09-26] MEDS ORDERED: Metoclopramide 10 MG Tab PO PRN (08:31)
[2022-09-26] MEDS ORDERED: Acetaminophen 325 MG Tab PO PRN (08:31)
[2022-09-26] MEDS ORDERED: Non-Formulary Medication 1 Each (Oxycodone Hcl [Oxycodone Hcl] 5 MG Capsule) PO PRN (08:31)
[2022-09-26] MEDS ORDERED: Loratadine 10 MG Tab PO PRN (08:31)
[2022-09-26] MEDS ORDERED: Albuterol 0.083% 2.5 MG/3 ML Neb Soln NEB PRN (08:42)
[2022-09-26] MEDS ORDERED: Furosemide 40 MG/4 ML VIAL IV ONE (08:44)
[2022-09-26] MEDS ORDERED: Cyclosporine [Restasis Multidose] EYEBOTH SCH (09:00)
[2022-09-26] MEDS ORDERED: Potassium Bicarbonate/Cit Ac 10 MEQ Effervescent Tab PO ONE (09:00)
[2022-09-26] MEDS ORDERED: LORazepam 0.5 MG Tab PO SCH (09:00)
[2022-09-26] MEDS ORDERED: Calcium Carbonate 750 MG Tab.Chew PO PRN (09:16)
[2022-09-26] MEDS ORDERED: Hypromellose 0.3% Ophth Soln 15 ML Bottle EYEBOTH PRN ×2 (09:17→09:24)
[2022-09-26] MEDS ORDERED: Ondansetron 4 MG Tab.DIS PO PRN (09:25)
[2022-09-26] MEDS: NS + KCl 20mEq/L 1,000 ML IV SCH ×3 (09:26→23:44)
[2022-09-26] MEDS ORDERED: Menthol 10%/Methyl Salicylate 15% 85 GM Tube TOP PRN (09:28)
[2022-09-26] MEDS: Venlafaxine 150 MG Cap.ER PO SCH (09:32)
[2022-09-26] MEDS: Venlafaxine 75 MG Cap.ER PO SCH (09:32)
[2022-09-26] MEDS: Tamsulosin 0.4 MG Cap.ER PO SCH (09:33)
[2022-09-26] MEDS ORDERED: [UNRECOGNIZED DRUG - OTHER] EYEBOTH PRN (09:37)
[2022-09-26] MEDS: Ketotifen 0.025% Ophth Soln 5 ML Bottle EYEBOTH SCH (10:01)
[2022-09-26] MEDS: Formoterol/Mometasone 200-5 MCG 13 GM Inhaler INH SCH ×2 (10:03→20:07)
[2022-09-26] MEDS: Lactobacillus Rhamnosus GG (Probiotic) Cap PO SCH ×2 (10:04→20:05)
[2022-09-26] MEDS: Carvedilol 6.25 MG Tab PO SCH ×2 (10:05→17:02)
[2022-09-26] MEDS: Albuterol/Ipratropium 3.0-0.5 MG/3 ML Neb Soln NEB SCH ×3 (10:05→18:45)
[2022-09-26] MEDS: Eucalyptus Oil/Menthol/Camphor [Vicks Vaporub Ointment] TOP SCH (10:22)
[2022-09-26 11:55] LABS: APPEARANCE,URINE CLEAR (CLEAR); BILIRUBIN,URINE NEGATIVE (NEGATIVE); GLUCOSE,URINE NEGATIVE (NEGATIVE); KETONES,URINE NEGATIVE (NEGATIVE); LEUKOCYTE ESTERASE,URINE NEGATIVE (NEGATIVE); NITRITE,URINE NEGATIVE (NEGATIVE); OCCULT BLOOD,URINE TRACE-INTACT (NEGATIVE); PH,URINE 5.5 (5.0-8.0); PROTEIN,URINE NEGATIVE (NEGATIVE); UROBILINOGEN,URINE 0.2 EU/dL (0.2)
[2022-09-26] MEDS ORDERED: Hypromellose 0.3% Ophth Soln 15 ML Bottle EYEBOTH SCH (12:00)
[2022-09-26] MEDS ORDERED: Potassium Chloride 10 MEQ Tab.ER PO SCH (12:00)
[2022-09-26 12:01] LABS: COLOR,URINE LIGHT YELLOW (YELLOW)
[2022-09-26 12:02] LABS: BACTERIA,URINE RARE /HPF (NOT SEEN); MUCUS,URINE RARE /LPF (NOT SEEN); RBC,URINE 0-5 /HPF (NOT SEEN); WBC,URINE 0-5 /HPF (NOT SEEN)
[2022-09-26] MEDS: Cyclosporine [Restasis Multidose] EYEBOTH SCH ×2 (13:26→20:07)
[2022-09-26] MEDS: LORazepam 0.5 MG Tab PO SCH ×2 (13:26→17:01)
[2022-09-26] MEDS: LURASIDONE 40 MG PO SCH (13:26)
[2022-09-26 15:29] LABS: ANION GAP 15.5 mmol/L (5-15); CALCIUM 7.6 mg/dL (8.5-10.1); EST CRCL DRUG DOSING (CG) 20.26 mL/min; POTASSIUM,K 3.5 mmol/L (3.5-5.1)
[2022-09-26 15:30] LABS: CREATININE 3.5 mg/dL (0.70-1.30)
[2022-09-26] MEDS: traZODone 50 MG Tab PO SCH (20:05)
[2022-09-26] MEDS: Apixaban 2.5 MG Tab PO SCH (20:05)
[2022-09-26] MEDS: Gabapentin 100 MG Cap PO SCH (20:05)
[2022-09-26] MEDS: LORazepam 1 MG Tab PO SCH (20:05)
[2022-09-26] MEDS: LINACLOTIDE 145 MCG PO SCH (20:07)
[2022-09-26] MEDS: oxyCODONE 5 MG Tab PO PRN (21:11)
[2022-09-27] MEDS: Albuterol/Ipratropium 3.0-0.5 MG/3 ML Neb Soln NEB SCH ×4 (02:51→18:44)
[2022-09-27] MEDS: guaiFENesin 100 MG/5 ML Soln 10 ML UD Cup PO PRN ×4 (03:12→23:04)
[2022-09-27] MEDS: NS + KCl 20mEq/L 1,000 ML IV SCH (05:57)
[2022-09-27 07:14] LABS: BASOPHILS PERCENT AUTO 0.3 % (0.2-1.2); EOSINOPHILS ABSOLUTE AUTO 0.3 x10^3/uL (0.0-0.5); EOSINOPHILS PERCENT AUTO 4.2 % (0.0-4.0); HEMATOCRIT 27.1 % (40.0-52.0); HEMOGLOBIN 8.9 g/dL (14.0-18.0); IMMATURE GRAN ABSOLUTE AUTO 0.03 x10^3/uL (0.00-0.07); LYMPHOCYTES ABSOLUTE AUTO 1.1 x10^3/uL (1.0-4.8); LYMPHOCYTES PERCENT AUTO 14.3 % (25.0-50.0); MEAN CORPUSCULAR HEMOGLOBIN 30.2 pg (26.0-32.0); MEAN CORPUSCULAR HGB CONC 32.8 g/dL (32.0-36.0); MEAN CORPUSCULAR VOLUME 91.9 fL (78.0-93.0); MONOCYTES ABSOLUTE AUTO 0.9 x10^3/uL (0.0-0.8); MONOCYTES PERCENT AUTO 11.3 % (2.0-11.0); NEUTROPHILS ABSOLUTE AUTO 5.4 x10^3/uL (1.8-7.7); NEUTROPHILS PERCENT AUTO 69.5 % (50.0-80.0); PLATELET COUNT,PLT 301 x10^3/uL (130-400); RED BLOOD CELL COUNT 2.95 x10^6/uL (4.5-6.0); WHITE BLOOD CELL COUNT,WBC 7.8 x10^3/uL (4.0-10.0)
[2022-09-27 07:29] LABS: A/G RATIO 0.48; BILIRUBIN TOTAL 0.1 mg/dL (0.2-1.0); CREATININE 1.9 mg/dL (0.70-1.30); EST CRCL DRUG DOSING (CG) 38.52 mL/min; POTASSIUM,K 4.3 mmol/L (3.5-5.1); PROTEIN TOTAL,TP 6.2 g/dL (6.4-8.2)
[2022-09-27 07:32] LABS: ANION GAP 14.3 mmol/L (5-15)
[2022-09-27] MEDS ORDERED: QUEtiapine 25 MG Tab PO PRN (08:28)
[2022-09-27] MEDS: Carvedilol 6.25 MG Tab PO SCH ×2 (08:52→17:52)
[2022-09-27] MEDS: Apixaban 2.5 MG Tab PO SCH ×2 (08:53→20:15)
[2022-09-27] MEDS: Tamsulosin 0.4 MG Cap.ER PO SCH (08:53)
[2022-09-27] MEDS: Venlafaxine 75 MG Cap.ER PO SCH (08:53)
[2022-09-27] MEDS: Gabapentin 100 MG Cap PO SCH ×2 (08:53→20:16)
[2022-09-27] MEDS: Lactobacillus Rhamnosus GG (Probiotic) Cap PO SCH ×2 (08:53→20:16)
[2022-09-27] MEDS: Venlafaxine 150 MG Cap.ER PO SCH (08:53)
[2022-09-27] MEDS: Amoxicillin/Clavulanate K 875-125 MG Tab PO SCH ×2 (08:53→20:15)
[2022-09-27] MEDS: Formoterol/Mometasone 200-5 MCG 13 GM Inhaler INH SCH ×2 (08:54→22:55)
[2022-09-27] MEDS: Ketotifen 0.025% Ophth Soln 5 ML Bottle EYEBOTH SCH (08:55)
[2022-09-27] MEDS: Cyclosporine [Restasis Multidose] EYEBOTH SCH ×2 (08:55→22:53)
[2022-09-27] MEDS: LURASIDONE 40 MG PO SCH (08:56)
[2022-09-27] MEDS: LORazepam 0.5 MG Tab PO SCH ×3 (09:02→17:52)
[2022-09-27] MEDS: Eucalyptus Oil/Menthol/Camphor [Vicks Vaporub Ointment] TOP SCH (09:10)
[2022-09-27] MEDS: LORazepam 1 MG Tab PO SCH (20:17)
[2022-09-27] MEDS: traZODone 50 MG Tab PO SCH (20:17)
[2022-09-27] MEDS: LINACLOTIDE 145 MCG PO SCH (22:52)
[2022-09-28] MEDS: Albuterol/Ipratropium 3.0-0.5 MG/3 ML Neb Soln NEB SCH ×4 (01:52→18:30)
[2022-09-28] MEDS: oxyCODONE 5 MG Tab PO PRN (02:52)
[2022-09-28 07:59] LABS: BASOPHILS PERCENT AUTO 0.4 % (0.2-1.2); EOSINOPHILS ABSOLUTE AUTO 0.3 x10^3/uL (0.0-0.5); EOSINOPHILS PERCENT AUTO 3.8 % (0.0-4.0); HEMATOCRIT 30.2 % (40.0-52.0); HEMOGLOBIN 10.1 g/dL (14.0-18.0); IMMATURE GRAN ABSOLUTE AUTO 0.02 x10^3/uL (0.00-0.07); LYMPHOCYTES ABSOLUTE AUTO 1.1 x10^3/uL (1.0-4.8); LYMPHOCYTES PERCENT AUTO 13.6 % (25.0-50.0); MEAN CORPUSCULAR HEMOGLOBIN 30.4 pg (26.0-32.0); MEAN CORPUSCULAR HGB CONC 33.4 g/dL (32.0-36.0); MONOCYTES ABSOLUTE AUTO 0.8 x10^3/uL (0.0-0.8); MONOCYTES PERCENT AUTO 10.4 % (2.0-11.0); NEUTROPHILS ABSOLUTE AUTO 5.6 x10^3/uL (1.8-7.7); NEUTROPHILS PERCENT AUTO 71.5 % (50.0-80.0); PLATELET COUNT,PLT 330 x10^3/uL (130-400); RED BLOOD CELL COUNT 3.32 x10^6/uL (4.5-6.0); WHITE BLOOD CELL COUNT,WBC 7.8 x10^3/uL (4.0-10.0)
[2022-09-28 08:17] LABS: A/G RATIO 0.47; ALBUMIN 2.2 g/dL (3.4-5.0); BILIRUBIN TOTAL 0.2 mg/dL (0.2-1.0); CREATININE 1.2 mg/dL (0.70-1.30); EST CRCL DRUG DOSING (CG) 60.45 mL/min; POTASSIUM,K 4.8 mmol/L (3.5-5.1); PROTEIN TOTAL,TP 6.9 g/dL (6.4-8.2)
[2022-09-28 08:28] LABS: ANION GAP 15.8 mmol/L (5-15)
[2022-09-28] MEDS: Carvedilol 6.25 MG Tab PO SCH ×2 (09:01→17:30)
[2022-09-28] MEDS: Apixaban 2.5 MG Tab PO SCH ×2 (09:01→20:56)
[2022-09-28] MEDS: Lactobacillus Rhamnosus GG (Probiotic) Cap PO SCH ×2 (09:01→20:56)
[2022-09-28] MEDS: Amoxicillin/Clavulanate K 875-125 MG Tab PO SCH ×2 (09:01→20:57)
[2022-09-28] MEDS: LORazepam 0.5 MG Tab PO SCH ×3 (09:01→17:30)
[2022-09-28] MEDS: Tamsulosin 0.4 MG Cap.ER PO SCH (09:01)
[2022-09-28] MEDS: Venlafaxine 150 MG Cap.ER PO SCH (09:02)
[2022-09-28] MEDS: Venlafaxine 75 MG Cap.ER PO SCH (09:02)
[2022-09-28] MEDS: Gabapentin 100 MG Cap PO SCH ×2 (09:02→20:56)
[2022-09-28] MEDS: Cyclosporine [Restasis Multidose] EYEBOTH SCH ×2 (09:03→21:07)
[2022-09-28] MEDS: Ketotifen 0.025% Ophth Soln 5 ML Bottle EYEBOTH SCH (09:03)
[2022-09-28] MEDS: LURASIDONE 40 MG PO SCH (09:03)
[2022-09-28] MEDS: Formoterol/Mometasone 200-5 MCG 13 GM Inhaler INH SCH ×2 (09:06→21:07)
[2022-09-28] MEDS: Eucalyptus Oil/Menthol/Camphor [Vicks Vaporub Ointment] TOP SCH (09:06)
[2022-09-28] MEDS ORDERED: Furosemide 20 MG Tab PO ONE (09:52)
[2022-09-28] MEDS: guaiFENesin 100 MG/5 ML Soln 10 ML UD Cup PO PRN ×2 (10:39→22:49)
[2022-09-28] MEDS: traZODone 50 MG Tab PO SCH (20:56)
[2022-09-28] MEDS: LORazepam 1 MG Tab PO SCH (20:56)
[2022-09-28] MEDS: LINACLOTIDE 145 MCG PO SCH (21:06)
[2022-09-29] MEDS: Albuterol/Ipratropium 3.0-0.5 MG/3 ML Neb Soln NEB SCH ×4 (02:08→18:28)
[2022-09-29] MEDS: Codeine/guaiFENesin 10-100 MG/5 ML Syrup 5 ML Cup PO PRN ×2 (02:23→23:15)
[2022-09-29 07:42] LABS: BASOPHILS PERCENT AUTO 0.3 % (0.2-1.2); EOSINOPHILS ABSOLUTE AUTO 0.4 x10^3/uL (0.0-0.5); EOSINOPHILS PERCENT AUTO 5.3 % (0.0-4.0); HEMATOCRIT 31.8 % (40.0-52.0); HEMOGLOBIN 10.3 g/dL (14.0-18.0); IMMATURE GRAN ABSOLUTE AUTO 0.02 x10^3/uL (0.00-0.07); LYMPHOCYTES ABSOLUTE AUTO 1.5 x10^3/uL (1.0-4.8); LYMPHOCYTES PERCENT AUTO 20.1 % (25.0-50.0); MEAN CORPUSCULAR HEMOGLOBIN 30.1 pg (26.0-32.0); MEAN CORPUSCULAR HGB CONC 32.4 g/dL (32.0-36.0); MONOCYTES ABSOLUTE AUTO 0.8 x10^3/uL (0.0-0.8); MONOCYTES PERCENT AUTO 10.4 % (2.0-11.0); NEUTROPHILS ABSOLUTE AUTO 4.9 x10^3/uL (1.8-7.7); NEUTROPHILS PERCENT AUTO 63.6 % (50.0-80.0); PLATELET COUNT,PLT 365 x10^3/uL (130-400); RED BLOOD CELL COUNT 3.42 x10^6/uL (4.5-6.0); WHITE BLOOD CELL COUNT,WBC 7.7 x10^3/uL (4.0-10.0)
[2022-09-29 08:04] LABS: A/G RATIO 0.44; ALBUMIN 2.3 g/dL (3.4-5.0); BILIRUBIN TOTAL 0.3 mg/dL (0.2-1.0); CREATININE 1.1 mg/dL (0.70-1.30); EST CRCL DRUG DOSING (CG) 62.85 mL/min; POTASSIUM,K 4.3 mmol/L (3.5-5.1); PROTEIN TOTAL,TP 7.5 g/dL (6.4-8.2)
[2022-09-29 08:11] LABS: ANION GAP 17.3 mmol/L (5-15)
[2022-09-29] MEDS: Ketotifen 0.025% Ophth Soln 5 ML Bottle EYEBOTH SCH (08:21)
[2022-09-29] MEDS: Amoxicillin/Clavulanate K 875-125 MG Tab PO SCH ×2 (08:22→20:23)
[2022-09-29] MEDS: Lactobacillus Rhamnosus GG (Probiotic) Cap PO SCH ×2 (08:22→20:23)
[2022-09-29] MEDS: Gabapentin 100 MG Cap PO SCH ×2 (08:22→20:24)
[2022-09-29] MEDS: Carvedilol 6.25 MG Tab PO SCH ×2 (08:22→17:38)
[2022-09-29] MEDS: Venlafaxine 150 MG Cap.ER PO SCH (08:22)
[2022-09-29] MEDS: Venlafaxine 75 MG Cap.ER PO SCH (08:23)
[2022-09-29] MEDS: Cyclosporine [Restasis Multidose] EYEBOTH SCH ×2 (08:23→20:21)
[2022-09-29] MEDS: LORazepam 0.5 MG Tab PO SCH ×3 (08:23→17:37)
[2022-09-29] MEDS: LURASIDONE 40 MG PO SCH (08:23)
[2022-09-29] MEDS: Apixaban 2.5 MG Tab PO SCH ×2 (08:23→20:23)
[2022-09-29] MEDS: Tamsulosin 0.4 MG Cap.ER PO SCH (08:23)
[2022-09-29] MEDS: Eucalyptus Oil/Menthol/Camphor [Vicks Vaporub Ointment] TOP SCH (08:24)
[2022-09-29] MEDS: Formoterol/Mometasone 200-5 MCG 13 GM Inhaler INH SCH ×2 (08:24→20:20)
[2022-09-29] MEDS: guaiFENesin 100 MG/5 ML Soln 10 ML UD Cup PO PRN (08:46)
[2022-09-29] MEDS: LINACLOTIDE 145 MCG PO SCH (20:21)
[2022-09-29] MEDS: LORazepam 1 MG Tab PO SCH (20:24)
[2022-09-29] MEDS: oxyCODONE 5 MG Tab PO PRN (20:25)
[2022-09-29] MEDS: traZODone 50 MG Tab PO SCH (20:25)
[2022-09-30] MEDS: Albuterol/Ipratropium 3.0-0.5 MG/3 ML Neb Soln NEB SCH ×2 (06:38)
[2022-09-30 07:16] LABS: BASOPHILS PERCENT AUTO 0.3 % (0.2-1.2); EOSINOPHILS ABSOLUTE AUTO 0.4 x10^3/uL (0.0-0.5); EOSINOPHILS PERCENT AUTO 5.1 % (0.0-4.0); HEMATOCRIT 34.2 % (40.0-52.0); HEMOGLOBIN 10.9 g/dL (14.0-18.0); IMMATURE GRAN ABSOLUTE AUTO 0.04 x10^3/uL (0.00-0.07); LYMPHOCYTES ABSOLUTE AUTO 1.8 x10^3/uL (1.0-4.8); LYMPHOCYTES PERCENT AUTO 21.3 % (25.0-50.0); MEAN CORPUSCULAR HEMOGLOBIN 29.6 pg (26.0-32.0); MEAN CORPUSCULAR HGB CONC 31.9 g/dL (32.0-36.0); MEAN CORPUSCULAR VOLUME 92.9 fL (78.0-93.0); MONOCYTES ABSOLUTE AUTO 0.9 x10^3/uL (0.0-0.8); MONOCYTES PERCENT AUTO 9.9 % (2.0-11.0); NEUTROPHILS ABSOLUTE AUTO 5.4 x10^3/uL (1.8-7.7); NEUTROPHILS PERCENT AUTO 62.9 % (50.0-80.0); PLATELET COUNT,PLT 413 x10^3/uL (130-400); RED BLOOD CELL COUNT 3.68 x10^6/uL (4.5-6.0); WHITE BLOOD CELL COUNT,WBC 8.6 x10^3/uL (4.0-10.0)
[2022-09-30 07:41] LABS: A/G RATIO 0.47; ALBUMIN 2.6 g/dL (3.4-5.0); BILIRUBIN TOTAL 0.2 mg/dL (0.2-1.0); CALCIUM 9.5 mg/dL (8.5-10.1); CREATININE 1.3 mg/dL (0.70-1.30); EST CRCL DRUG DOSING (CG) 52.54 mL/min; POTASSIUM,K 4.2 mmol/L (3.5-5.1); PROTEIN TOTAL,TP 8.1 g/dL (6.4-8.2)
[2022-09-30 07:50] LABS: ANION GAP 18.2 mmol/L (5-15)
[2022-09-30] MEDS: LORazepam 0.5 MG Tab PO SCH (09:48)
[2022-09-30] MEDS: Lactobacillus Rhamnosus GG (Probiotic) Cap PO SCH (09:49)
[2022-09-30] MEDS: Amoxicillin/Clavulanate K 875-125 MG Tab PO SCH (09:49)
[2022-09-30] MEDS: Carvedilol 6.25 MG Tab PO SCH (09:49)
[2022-09-30] MEDS: Tamsulosin 0.4 MG Cap.ER PO SCH (09:49)
[2022-09-30] MEDS: Venlafaxine 150 MG Cap.ER PO SCH (09:49)
[2022-09-30] MEDS: Gabapentin 100 MG Cap PO SCH (09:49)
[2022-09-30] MEDS: Venlafaxine 75 MG Cap.ER PO SCH (09:50)
[2022-09-30] MEDS: Apixaban 2.5 MG Tab PO SCH (09:50)
[2022-09-30] MEDS: Eucalyptus Oil/Menthol/Camphor [Vicks Vaporub Ointment] TOP SCH (09:51)
[2022-09-30] MEDS: Formoterol/Mometasone 200-5 MCG 13 GM Inhaler INH SCH (09:52)
[2022-09-30] MEDS: LURASIDONE 40 MG PO SCH (09:53)
[2022-09-30] MEDS: Ketotifen 0.025% Ophth Soln 5 ML Bottle EYEBOTH SCH (09:54)
[2022-09-30] MEDS: Cyclosporine [Restasis Multidose] EYEBOTH SCH (09:55)
== END 2022-09-30 13:05 | DRG 682 ==
LOC: VM.ED 17:10 → VM.MS 20:07
PROVIDERS: ADMIT Family Medicine; ATTEND Internal Medicine
DX: N17.9 Acute kidney failure, unspecified (principal); I48.91 Unspecified atrial fibrillation; G93.41 Metabolic encephalopathy; E44.0 Moderate protein-calorie malnutrition; E78.00 Pure hypercholesterolemia, unspecified; I42.9 Cardiomyopathy, unspecified; F05 Delirium due to known physiological condition; E86.0 Dehydration; Z79.899 Other long term (current) drug therapy; K59.81 Ogilvie syndrome; Z66 Do not resuscitate; G62.1 Alcoholic polyneuropathy; J44.9 Chronic obstructive pulmonary disease, unspecified; I25.10 Atherosclerotic heart disease of native coronary artery without angina pectoris; N40.0 Benign prostatic hyperplasia without lower urinary tract symptoms; K21.9 Gastro-esophageal reflux disease without esophagitis; F03.90 Unspecified dementia, unspecified severity, without behavioral disturbance, psychotic disturbance, mood disturbance, and anxiety; F41.1 Generalized anxiety disorder; D64.9 Anemia, unspecified; I10 Essential (primary) hypertension; I48.0 Paroxysmal atrial fibrillation; Z20.822 Contact with and (suspected) exposure to COVID-19; M19.90 Unspecified osteoarthritis, unspecified site; F31.9 Bipolar disorder, unspecified; H35.30 Unspecified macular degeneration; Z96.649 Presence of unspecified artificial hip joint; Z79.51 Long term (current) use of inhaled steroids; Z95.0 Presence of cardiac pacemaker; Z95.810 Presence of automatic (implantable) cardiac defibrillator; Z98.890 Other specified postprocedural states; Z87.891 Personal history of nicotine dependence; Z90.49 Acquired absence of other specified parts of digestive tract; Z68.20 Body mass index [BMI] 20.0-20.9, adult
CPT/HCPCS: 36415; 51702; 51798; 70450; 71045; 74019; 80048; 80053; 81001; 82140; 83605; 83735; 83880; 84145; 85025; 86140; 87040; 94640; 94760; 96360; 96361; 97161-GP; 97165-GO; 97530-GO; 99284; 99285-25; A9270-GY; J1940; J3480; J7030; J7620-GY; U0002

== ENCOUNTER 2022-10-22 11:52 | Emergency (ER) | payer MEDICARE, OTHER, MEDICAID ==
[2022-10-22] MEDS ORDERED: Sodium Chloride 0.9% 10 ML Syringe FLUSH PRN (12:08)
[2022-10-22 12:32] LABS: BASOPHILS PERCENT AUTO 0.3 % (0.2-1.2); EOSINOPHILS ABSOLUTE AUTO 0.1 x10^3/uL (0.0-0.5); EOSINOPHILS PERCENT AUTO 1.4 % (0.0-4.0); HEMATOCRIT 34.4 % (40.0-52.0); HEMOGLOBIN 11.2 g/dL (14.0-18.0); IMMATURE GRAN ABSOLUTE AUTO 0.03 x10^3/uL (0.00-0.07); LYMPHOCYTES ABSOLUTE AUTO 1.5 x10^3/uL (1.0-4.8); MEAN CORPUSCULAR HEMOGLOBIN 29.5 pg (26.0-32.0); MEAN CORPUSCULAR HGB CONC 32.6 g/dL (32.0-36.0); MEAN CORPUSCULAR VOLUME 90.5 fL (78.0-93.0); MONOCYTES ABSOLUTE AUTO 1.1 x10^3/uL (0.0-0.8); MONOCYTES PERCENT AUTO 12.6 % (2.0-11.0); NEUTROPHILS ABSOLUTE AUTO 6.2 x10^3/uL (1.8-7.7); NEUTROPHILS PERCENT AUTO 68.4 % (50.0-80.0); PLATELET COUNT,PLT 483 x10^3/uL (130-400); WHITE BLOOD CELL COUNT,WBC 9.1 x10^3/uL (4.0-10.0)
[2022-10-22 12:50] LABS: INR 1.1 (2.0-3.5); PROTHROMBIN TIME 12.2 SEC (9.5-12.2); PTT,PARTIAL THROMBOPLSTIN TIME 35.8 SEC (23.6-33.6)
[2022-10-22] MEDS ORDERED: HYDROmorphone 0.5 MG/0.5 ML Syringe IVPUSH ONE ×2 (12:51→14:04)
[2022-10-22] MEDS ORDERED: Lactated Ringers 1,000 ML IV ONE (12:52)
[2022-10-22 12:53] LABS: A/G RATIO 0.44; ALANINE AMINOTRANSFERASE,ALT 12 U/L (16-63); ALBUMIN 2.1 g/dL (3.4-5.0); ALKALINE PHOSPHATASE 148 U/L (46-116); ANION GAP 13.7 mmol/L (5-15); BILIRUBIN TOTAL 0.2 mg/dL (0.2-1.0); BLOOD UREA NITROGEN,BUN 16 mg/dL (7-18); C-REACTIVE PROTEIN 6.24 mg/dL (<=0.30); CARBON DIOXIDE,CO2 26 mmol/L (21-32); CHLORIDE,CL 106 mmol/L (98-107); CREATININE 1.2 mg/dL (0.70-1.30); GLUCOSE RANDOM 95 mg/dL (70-99); MAGNESIUM 1.6 mg/dL (1.8-2.4); POTASSIUM,K 3.7 mmol/L (3.5-5.1); PROTEIN TOTAL,TP 6.9 g/dL (6.4-8.2); SODIUM,NA 142 mmol/L (136-145)
[2022-10-22 12:54] LABS: ESTIMATED GFR 67 mL/min (>=60)
[2022-10-22 12:55] LABS: LACTIC ACID 1.3 mmol/L (0.4-2.0)
[2022-10-22 13:05] LABS: ASPARTATE AMNIOTRANSFERASE,AST 10 U/L (15-37)
[2022-10-22] MEDS ORDERED: Iopamidol 612 MG/ML 100 ML Bottle IVPUSH ONE (13:31)
== END 2022-10-22 15:30 ==
LOC: VM.ED 11:52
DX: K52.9 Noninfective gastroenteritis and colitis, unspecified (principal); I48.91 Unspecified atrial fibrillation; J44.9 Chronic obstructive pulmonary disease, unspecified; K21.9 Gastro-esophageal reflux disease without esophagitis; E78.00 Pure hypercholesterolemia, unspecified; I10 Essential (primary) hypertension; Z88.8 Allergy status to other drugs, medicaments and biological substances
CPT/HCPCS: 36415; 74177; 80053; 83605; 83735; 84145; 85025; 85610; 85730; 86140; 87040; 87070; 87075; 87077; 87186; 96361; 96374; 96376; 99284; 99284-25; J1170; J7120; Q9967

== ENCOUNTER 2023-06-05 10:06 | Emergency (ER) | payer MEDICARE, OTHER, MEDICAID ==
[2023-06-05 10:43] LABS: BASOPHILS ABSOLUTE AUTO 0.1 x10^3/uL (0.0-0.2); BASOPHILS PERCENT AUTO 0.3 % (0.2-1.2); EOSINOPHILS ABSOLUTE AUTO 0.1 x10^3/uL (0.0-0.5); EOSINOPHILS PERCENT AUTO 0.4 % (0.0-4.0); HEMOGLOBIN 10.7 g/dL (14.0-18.0); IMMATURE GRAN ABSOLUTE AUTO 0.06 x10^3/uL (0.00-0.07); LYMPHOCYTES ABSOLUTE AUTO 1.4 x10^3/uL (1.0-4.8); LYMPHOCYTES PERCENT AUTO 7.4 % (25.0-50.0); MEAN CORPUSCULAR HEMOGLOBIN 23.5 pg (26.0-32.0); MEAN CORPUSCULAR HGB CONC 30.6 g/dL (32.0-36.0); MEAN CORPUSCULAR VOLUME 76.8 fL (78.0-93.0); MONOCYTES ABSOLUTE AUTO 1.4 x10^3/uL (0.0-0.8); MONOCYTES PERCENT AUTO 7.1 % (2.0-11.0); NEUTROPHILS ABSOLUTE AUTO 16.4 x10^3/uL (1.8-7.7); NEUTROPHILS PERCENT AUTO 84.5 % (50.0-80.0); RED BLOOD CELL COUNT 4.56 x10^6/uL (4.5-6.0); WHITE BLOOD CELL COUNT,WBC 19.5 x10^3/uL (4.0-10.0)
[2023-06-05] MEDS ORDERED: Naloxone 0.4 MG/ML SDV IVPUSH PRN (10:46)
[2023-06-05] MEDS ORDERED: HYDROmorphone 0.5 MG/0.5 ML Syringe IVPUSH ONE (10:46)
[2023-06-05 10:57] LABS: PLATELET COUNT,PLT 506 x10^3/uL (130-400)
[2023-06-05] MEDS: Ondansetron 4 MG/2 ML SDV IVPUSH ONE (10:57)
[2023-06-05] MEDS: HYDROmorphone 0.5 MG/0.5 ML Syringe IM ONE (11:00)
[2023-06-05 11:04] LABS: ALANINE AMINOTRANSFERASE,ALT 9 U/L (16-63); ALBUMIN 2.8 g/dL (3.4-5.0); ALKALINE PHOSPHATASE 162 U/L (46-116); ASPARTATE AMNIOTRANSFERASE,AST 16 U/L (15-37); BILIRUBIN TOTAL 0.2 mg/dL (0.2-1.0); BLOOD UREA NITROGEN,BUN 31 mg/dL (7-18); C-REACTIVE PROTEIN 5.16 mg/dL (<=0.50); CARBON DIOXIDE,CO2 20 mmol/L (21-32); CHLORIDE,CL 103 mmol/L (98-107); GLUCOSE RANDOM 140 mg/dL (70-99); PROTEIN TOTAL,TP 8.4 g/dL (6.4-8.2); SODIUM,NA 142 mmol/L (136-145)
[2023-06-05 11:05] LABS: ESTIMATED GFR 22 mL/min (>=60)
[2023-06-05] MEDS: Sodium Chloride 0.9% 1,000 ML IV ONE (12:10)
[2023-06-05] MEDS: cefTRIAXone 1 GM Vial IVPUSH ONE (12:25)
[2023-06-05 13:04] LABS: CORONAVIRUS COVID-19 NAA NEGATIVE (NEGATIVE); INFLUENZA A NAA NEGATIVE (NEGATIVE); INFLUENZA B NAA NEGATIVE (NEGATIVE); RESPIRATORY SYNCYTIAL VIR NAA NEGATIVE (NEGATIVE)
[2023-06-05] MEDS: LORazepam 0.5 MG Tab PO ONE (13:59)
[2023-06-05] MEDS: NS with KCl 40mEq 1,000 ML IV SCH (14:00)
== END 2023-06-05 15:15 | disposition short-term general hospital (02) ==
LOC: VM.ED 10:06
DX: K56.699 Other intestinal obstruction unspecified as to partial versus complete obstruction (principal); A41.9 Sepsis, unspecified organism; R11.10 Vomiting, unspecified; I10 Essential (primary) hypertension; E78.00 Pure hypercholesterolemia, unspecified; J44.9 Chronic obstructive pulmonary disease, unspecified; K21.9 Gastro-esophageal reflux disease without esophagitis; Z95.5 Presence of coronary angioplasty implant and graft; Z88.1 Allergy status to other antibiotic agents; Z79.01 Long term (current) use of anticoagulants; Z79.899 Other long term (current) drug therapy
CPT/HCPCS: 0241U; 36415; 71045; 74176; 80053; 83605; 84145; 85025; 86140; 87040; 87070; 87077; 87186; 96361; 96365; 96372; 96375; 99285; A9270; J0696; J1170; J2405; J3480; J7030

== ENCOUNTER 2023-07-17 07:21 | Emergency (ER) | payer MEDICARE, OTHER, MEDICAID ==
[2023-07-17 07:42] LABS: BASOPHILS ABSOLUTE AUTO 0.1 x10^3/uL (0.0-0.2); BASOPHILS PERCENT AUTO 0.8 % (0.2-1.2); EOSINOPHILS ABSOLUTE AUTO 0.3 x10^3/uL (0.0-0.5); EOSINOPHILS PERCENT AUTO 2.8 % (0.0-4.0); HEMATOCRIT 37.4 % (40.0-52.0); IMMATURE GRAN ABSOLUTE AUTO 0.03 x10^3/uL (0.00-0.07); LYMPHOCYTES ABSOLUTE AUTO 1.8 x10^3/uL (1.0-4.8); LYMPHOCYTES PERCENT AUTO 14.7 % (25.0-50.0); MEAN CORPUSCULAR HEMOGLOBIN 30.1 pg (26.0-32.0); MEAN CORPUSCULAR HGB CONC 32.1 g/dL (32.0-36.0); MONOCYTES ABSOLUTE AUTO 1.2 x10^3/uL (0.0-0.8); MONOCYTES PERCENT AUTO 10.3 % (2.0-11.0); NEUTROPHILS ABSOLUTE AUTO 8.5 x10^3/uL (1.8-7.7); NEUTROPHILS PERCENT AUTO 71.1 % (50.0-80.0); PLATELET COUNT,PLT 301 x10^3/uL (130-400); RED BLOOD CELL COUNT 3.99 x10^6/uL (4.5-6.0); WHITE BLOOD CELL COUNT,WBC 11.9 x10^3/uL (4.0-10.0)
[2023-07-17 07:52] LABS: AMPHETAMINES SCREEN, URINE NEGATIVE (NEGATIVE); BARBITURATE SCREEN,URINE NEGATIVE (NEGATIVE); BENZODIAZEPINES SCREEN,URINE POSITIVE (NEGATIVE)
[2023-07-17 07:53] LABS: BUPRENORPHINE SCREEN,URINE NEGATIVE (NEGATIVE); COCAINE METABOLITES,URINE NEGATIVE (NEGATIVE); METHADONE SCREEN, URINE NEGATIVE (NEGATIVE); METHAMPHETAMINE SCREEN, URINE NEGATIVE (NEGATIVE); OXYCODONE SCREEN,URINE NEGATIVE (NEGATIVE); PCP SCREEN,URINE NEGATIVE (NEGATIVE); THC SCREEN,URINE 50 NG/ML NEGATIVE (NEGATIVE)
[2023-07-17 08:02] LABS: MEAN CORPUSCULAR VOLUME 93.7 fL (78.0-93.0)
[2023-07-17 08:07] LABS: A/G RATIO 0.79; ALANINE AMINOTRANSFERASE,ALT 13 U/L (16-63); ALBUMIN 3.3 g/dL (3.4-5.0); ALKALINE PHOSPHATASE 170 U/L (46-116); ANION GAP 17.2 mmol/L (5-15); ASPARTATE AMNIOTRANSFERASE,AST 12 U/L (15-37); BILIRUBIN TOTAL 0.2 mg/dL (0.2-1.0); BLOOD UREA NITROGEN,BUN 19 mg/dL (7-18); CALCIUM 8.6 mg/dL (8.5-10.1); CARBON DIOXIDE,CO2 21 mmol/L (21-32); CHLORIDE,CL 110 mmol/L (98-107); CREATININE 1.8 mg/dL (0.70-1.30); ESTIMATED GFR 41 mL/min (>=60); GLUCOSE RANDOM 112 mg/dL (70-99); POTASSIUM,K 3.2 mmol/L (3.5-5.1); PROTEIN TOTAL,TP 7.5 g/dL (6.4-8.2); SODIUM,NA 145 mmol/L (136-145)
[2023-07-17 08:23] LABS: ETHANOL BLOOD MEDICAL < 3 mg/dL (0-3)
== END 2023-07-17 10:25 | disposition home or self-care (01) ==
LOC: VM.ED 07:21
DX: F10.10 Alcohol abuse, uncomplicated (principal); I10 Essential (primary) hypertension; J44.9 Chronic obstructive pulmonary disease, unspecified; K21.9 Gastro-esophageal reflux disease without esophagitis; Z88.8 Allergy status to other drugs, medicaments and biological substances; Z79.899 Other long term (current) drug therapy
CPT/HCPCS: 36415; 70450; 80053; 80305-QW; 80307; 85025; 99285

== ENCOUNTER 2024-05-03 21:30 | Emergency (ER) | payer MEDICARE, OTHER, MEDICAID ==
[2024-05-03] MEDS ORDERED: EPINEPHrine 1:10,000 1 MG/10 ML Syringe ONE ×3 (21:33→21:47)
[2024-05-03] MEDS ORDERED: Sodium Bicarbonate 8.4% 50 MEQ/50 ML Syringe ONE ×2 (21:33→21:47)
== END 2024-05-03 21:40 | disposition expired ==
LOC: VM.ED 21:30
DX: I46.9 Cardiac arrest, cause unspecified (principal); I10 Essential (primary) hypertension; E78.00 Pure hypercholesterolemia, unspecified; J44.9 Chronic obstructive pulmonary disease, unspecified; K21.9 Gastro-esophageal reflux disease without esophagitis; Z79.899 Other long term (current) drug therapy; Z88.8 Allergy status to other drugs, medicaments and biological substances
CPT/HCPCS: 92950; 99291-25; J3490